=== PATIENT | female | born 1985 | race Caucasian/White ===

== ENCOUNTER 2020-11-19 13:28 | Outpatient (RCR) | payer OTHER, SELFPAY | END 2021-02-17 23:59 | disposition home or self-care (01) | LOC: ANHLAB 13:28 | PROVIDERS: Visit Provider Obstetrics & Gynecology | DX: O20.0 Threatened abortion (principal); Z3A.00 Weeks of gestation of pregnancy not specified | CPT/HCPCS: 36415; 84702 ==